=== PATIENT | male | born 1970 | race Caucasian/White ===

== ENCOUNTER 2018-07-24 10:36 | Emergency (ER) | payer OTHER ==
--- NOTE | 2018-07-24 10:46 | EDPHY ---
H & P Stated Complaint: N/V, CP, chills, body aches, coughing nasal congestion since last night Time Seen by Provider: 07/24/18 10:46 HPI/ROS: CHIEF COMPLAINT: [ ] HISTORY OF PRESENT ILLNESS: [Need 4: Location, Duration, Severity, Quality, Context, Timing Modifying Factors, Associated S&S] REVIEW OF SYSTEMS: A comprehensive 10 point review of systems is otherwise negative aside from elements mentioned in the history of present illness. Source: Patient - Medical/Surgical History Hx Asthma: No Hx Chronic Respiratory Disease: No Hx Diabetes: No Hx Cardiac Disease: No Hx Renal Disease: No Hx Cirrhosis: No Hx Alcoholism: No Hx HIV/AIDS: No Hx Splenectomy or Spleen Trauma: No Other PMH: hernia surgery - Social History Smoking Status: Never smoked - Physical Exam Exam: General Appearance: [Alert, no distress] Eyes: [Pupils equal and round no pallor or injection] ENT, Mouth: [Mucous membranes moist] Respiratory: [There are no retractions, lungs are clear to auscultation] Cardiovascular: [Regular rate and rhythm] Gastrointestinal: [Abdomen is soft and nontender, no masses, bowel sounds normal] Neurological: [A&O, normal motor function, normal sensory exam, normal cranial nerves] Skin: [Warm and dry, no rashes] Musculoskeletal: [Neck is supple nontender] Extremities: [symmetrical, full range of motion] Psychiatric: [Patient is oriented X 3, there is no agitation] Constitutional: Initial Vital Signs Temperature (C) 36.8 C 07/24/18 10:37 Heart Rate 118 H 07/24/18 10:37 Respiratory Rate 22 H 07/24/18 10:37 Blood Pressure 159/100 H 07/24/18 10:37 O2 Sat (%) 97 07/24/18 10:37 O2 Delivery Mode Room Air Allergies/Adverse Reactions: No Known Allergies Allergy (Unverified 07/24/18 10:36) Home Medications: Medication Instructions Recorded NK [No Known Home Meds] 07/24/18 Departure - Departure Referrals: Patient,NotPresent [Primary Care Provider] - As per Instructions
[2018-07-24] MEDS ORDERED: NS 1,000 ML IV ONE (11:08)
[2018-07-24] MEDS ORDERED: ASPIRIN 81 MG CHEWABLE TAB PO ONE (11:08)
--- NOTE | 2018-07-24 11:10 | EDPHY ---
HPI/HX/ROS/PE/MDM Narrative: CLINICAL IMPRESSION: Left anterior chest pain ASSESSMENT/PLAN: 48-year-old male with no significant past medical history presents to the emergency department with approximately 8 hr of atraumatic, nonexertional left anterior chest pain associated with shortness of breath, subjective diaphoresis and nausea. Pain is not reproducible to palpation, is nonradiating, and was improved upon receiving aspirin in the ED. Patient declined and additional analgesics and antiemetics. Vital signs were stable, no hypoxia or tachycardia. He did have recent car travel, no asymmetric leg swelling or calf pain. Negative D-dimer. EKG x2 shows normal sinus rhythm, no acute ST or T- wave changes, S1 q3 T3 or other arrhythmia. These were reviewed with Dr. Riley. Troponin was 0.02. Remainder of labs reassuring with no leukocytosis, renal insufficiency, electrolyte imbalance or metabolic disturbance. Chest x- ray with no acute cardiopulmonary abnormality. Patient has a heart score of 2 and I had a long discussion with him regarding low risk cardiac chest pain. Patient feels comfortable with discharge and Cardiology follow-up within 72 hr. Referrals were given to both the patient and placed in his chart note for outpatient cardiology follow-up. I recommended daily baby aspirin, close monitoring of symptoms at home, low threshold for return to ED sooner as outlined and discharge and person. DIFFERENTIAL DX: Differential diagnosis includes but not limited to myocardial ischemia, pulmonary embolus, chest wall pain, pleural inflammation, musculoskeletal chest wall pain, aortic aneurysm, and pulmonary infectious causes. ED PROCEDURES: See lab and imaging results below ED COURSE: 11:00 a.m.: EKG reviewed with Dr. Riley. Normal sinus rhythm, no acute ST or T-wave changes, no S1q3T3 identified. 12:00 p.m.: Troponin 0.02. Chest x-ray with no acute cardiopulmonary findings , labs unremarkable, normal D-dimer. Patient reassessed. Patient states pain is now 3/10, still feeling sweaty. Less dizziness, no nausea. Vital stable. Will repeat EKG CHIEF COMPLAINT: Chest pain, nausea, shortness of breath, diaphoresis HPI: This is a 48-year-old male who presents to the emergency department with complaints of left anterior chest tightness associated with nausea, shortness of breath and diaphoresis that awoke him from sleep at 2:30 a.m. This morning. Patient did not take anything for his symptoms, tried to rest but when symptoms persisted he came to the emergency department. He reports never having had symptoms like this before, no recent URI symptoms or cough. No reported fevers. He has no reported history of hypertension, hyperlipidemia, diabetes, smoking, alcohol use, or prior cardiopulmonary history. His father apparently had 2 MIs at age 50 and 52 and has stents placed. Patient states he rides his bike daily and has not had any exercise intolerance. He did drive back from [place] yesterday without stopping. No personal or family history of DVT or PE. No reported leg asymmetry or swelling. He normally does not struggle with panic or anxiety. No associated headache dizziness or vertigo. He did not take anything prior to arrival. PMH: None reported Pertinent Past Surgical History: None reported Family History: Father with KS at age 50 and 52 requiring stents Social History: Nonsmoker, does not drink alcohol, participate in daily exercise REVIEW OF SYSTEMS: All other systems negative Constitutional: No fever, no chills, appetite change. Eyes: No discharge, vision change ENT: No sore throat, congestion, ear pain. Cardiovascular: Positive for chest pain and shortness of breath Respiratory: Positive for shortness of breath Gastrointestinal: No abdominal pain, no vomiting, diarrhea, positive for nausea. Genitourinary: No hematuria, dysuria, flank pain, pelvic pain Musculoskeletal: No back pain, joint swelling, joint pain, myalgias. Skin: No rashes, color change. Neurological: No headache, dizziness, +weakness. PHYSICAL EXAM: General Appearance: Alert, oriented, appropriate, cooperative, NAD, well hydrated, non-toxic appearing, VSS, no hypoxia. HEENT: TMs are clear bilaterally no perforation or FB, no injection, no evidence of serous or mucopurulent otitis. Oropharynx clear is no erythema or exudates, no tonsillar hypertrophy or asymmetry. Dentition without abnormality. Eyes: PERRLA, no acute vision change, nystagmus, swelling, discharge, pain or photosensitivity. Conjunctiva pink, no pallor or injection Neck: Supple, nontender, no lymphadenopathy, no midline pain, FROM, no meningismus. Respiratory: There are no retractions, lungs are clear to auscultation. No reproducible chest pain to palpation Cardiac: Regular rate and rhythm, no murmurs or gallops. Gastrointestinal: Abdomen is soft, nontender, bowel sounds normal, no masses/ hernia, no rigidity, guarding or focal peritoneal findings. Neurological: [ Alert and oriented x 3, CN 2-12 grossly intact Skin: Warm, dry, no rashes, no nodules on palpation. Musculoskeletal: Extremities are symmetrical, full range of motion, no tenderness, deformity, swelling, or erythema, no calf pain or asymmetry Psychiatric: Patient is oriented X 3, there is no agitation. MEDICAL DECISION MAKING: Patient was seen independently. Secondary supervising physician at time of evaluation was Dr. Riley. Diagnosis: Left anterior chest pain. New, requires workup Summary: See Assessment and Plan for summary of ED visit Clinical lab tests: ordered / reviewed. Independent visualization of images, tracing, or specimens: Yes. Discussed patient with another provider: Dr. Riley Patient Progress: Stable. (Margarito Dos Santos) MDM: PHYSICIAN DOCUMENTATION: The patient was evaluated and managed by the Physician Environmental Health Specialist. My co- signature indicates that I have reviewed this chart and I agree with the findings and plan of care as documented. I am the secondary supervising physician. EKG: Complete interpretation has been separately recorded in the [facility] archive. Summary impression: Sinus rhythm, no ischemic changes EKG: Complete interpretation has been separately recorded in the [facility] archive. Summary impression: Repeat EKG, demonstrates sinus rhythm without ischemic changes (Marcelo Riley) - Data Points Imaging Results: Imaging Impressions Chest X-Ray 07/24/18 11:08 Impression: No acute findings in the chest. Laboratory Results: Laboratory Results 07/24/18 10:56 07/24/18 10:56 07/24/18 07/24/18 07/24/18 11:00 10:56 10:56 WBC RBC Hgb Hct MCV MCH MCHC RDW Plt Count MPV Neut % (Auto) Lymph % (Auto) Hemphill % (Auto) Eos % (Auto) Baso % (Auto) Nucleat RBC Rel Count Absolute Neuts (auto) Absolute Lymphs (auto) Absolute Monos (auto) Absolute Eos (auto) Absolute Basos (auto) Absolute Nucleated RBC Immature Gran % Immature Gran # D-Dimer < 0.27 ug/mLFEU ug/mLFEU (0.00-0.50) Sodium 140 mEq/L mEq/L (135-145) Potassium 4.1 mEq/L mEq/L (3.5-5.2) Chloride 108 mEq/L mEq/L (97-110) Carbon Dioxide 18 mEq/l L mEq/l (22-31) Anion Gap 14 mEq/L mEq/L (6-14) BUN 18 mg/dL mg/dL (7-23) Creatinine 1.1 mg/dL mg/dL (0.7-1.3) Estimated GFR > 60 Glucose 133 mg/dL H mg/dL (70-100) Calcium 10.3 mg/dL mg/dL (8.5-10.4) POC Troponin I 0.02 ng/mL ng/mL (0.00-0.08) 07/24/18 10:56 WBC 10.97 10^3/uL H 10^3/uL (3.80-9.50) RBC 5.18 10^6/uL 10^6/uL (4.40-6.38) Hgb 17.1 g/dL g/dL (13.7-17.5) Hct 48.3 % % (40.0-51.0) MCV 93.2 fL fL (81.5-99.8) MCH 33.0 pg pg (27.9-34.1) MCHC 35.4 g/dL g/dL (32.4-36.7) RDW 12.5 % % (11.5-15.2) Plt Count 284 10^3/uL 10^3/uL (150-400) MPV 9.6 fL fL (8.7-11.7) Neut % (Auto) 80.1 % H % (39.3-74.2) Lymph % (Auto) 13.2 % L % (15.0-45.0) Hemphill % (Auto) 6.0 % % (4.5-13.0) Eos % (Auto) 0.1 % L % (0.6-7.6) Baso % (Auto) 0.3 % % (0.3-1.7) Nucleat RBC Rel Count 0.0 % % (0.0-0.2) Absolute Neuts (auto) 8.79 10^3/uL H 10^3/uL (1.70-6.50) Absolute Lymphs (auto) 1.45 10^3/uL 10^3/uL (1.00-3.00) Absolute Monos (auto) 0.66 10^3/uL 10^3/uL (0.30-0.80) Absolute Eos (auto) 0.01 10^3/uL L 10^3/uL (0.03-0.40) Absolute Basos (auto) 0.03 10^3/uL 10^3/uL (0.02-0.10) Absolute Nucleated RBC 0.00 10^3/uL 10^3/uL (0-0.01) Immature Gran % 0.3 % % (0.0-1.1) Immature Gran # 0.03 10^3/uL 10^3/uL (0.00-0.10) D-Dimer Sodium Potassium Chloride Carbon Dioxide Anion Gap BUN Creatinine Estimated GFR Glucose Calcium POC Troponin I Medications Given: Discontinued Medications Aspirin (Aspirin) 324 mg PO EDNOW ONE Stop: 07/24/18 11:09 Last Admin: 07/24/18 11:15 Dose: 324 mg Sodium Chloride (Ns) 1,000 mls @ 0 mls/hr IV EDNOW ONE; Wide Open PRN Reason: Protocol Stop: 07/24/18 11:09 Last Admin: 07/24/18 11:15 Dose: 1,000 mls Point of Care Test Results: Chemistry 07/24/18 11:00 POC Troponin I 0.02 ng/mL ng/mL (0.00-0.08) General Time Seen by Provider: 07/24/18 10:46 Initial Vital Signs: Initial Vital Signs Temperature (C) 36.8 C 07/24/18 10:37 Heart Rate 118 H 07/24/18 10:37 Respiratory Rate 22 H 07/24/18 10:37 Blood Pressure 159/100 H 07/24/18 10:37 O2 Sat (%) 97 07/24/18 10:37 O2 Delivery Mode Room Air Allergies/Adverse Reactions: No Known Allergies Allergy (Unverified 07/24/18 10:36) Home Medications: Medication Instructions Recorded NK [No Known Home Meds] 07/24/18 Departure - Departure Disposition: Home, Routine, Self-Care Clinical Impression: Chest pain Qualifiers: Chest pain type: unspecified Qualified Code(s): R07.9 - Chest pain, unspecified Condition: Good Instructions: Chest Pain (ED) Additional Instructions: DISCHARGE INSTRUCTIONS FROM YOUR DOCTOR Thank you for visiting our emergency department today. Please keep in mind that discharge from the emergency department does not mean that there is nothing wrong - it simply means that we have not identified an emergency condition that requires further evaluation or treatment in the hospital. You should always plan to follow up with primary care for re-evaluation of your condition in the next 2-3 days. If you have been referred to a specialist, please call as soon as possible (today or tomorrow) to schedule your follow up appointment at the appropriate time. 1. Based upon the testing done in the Emergency Department today we see no evidence of a heart attack. 2. We are unable to fully exclude coronary artery disease based upon the testing available in the Emergency Department. 3. For this reason, we would like you to be seen by cardiology for consideration of additional testing within the next 3 days. 4. Please contact the architectural technologist you have been referred to schedule this appointment as soon as possible. Their offices are typically open from 8:30am- 5pm M-F. 5. Please return to the Emergency Department immediately for any recurrent chest pain, difficulty breathing or other concerns. People present with illnesses and injuries in different ways, and it is always possible that we have missed something. You may always return for re-evaluation if symptoms worsen or if they are not improving or if you develop new/different symptoms. Again, thank you for choosing our emergency department. We hope that you feel better. Referrals: Patient,NotPresent [Unknown] - As per Instructions Akshat Coley MD [Medical Doctor] - As per Instructions
[2018-07-24 11:15] LABS: PLATELET COUNT 284 10^3/uL (150-400)
[2018-07-24 13:11] VITALS: BP 153/68
--- NOTE | 2018-07-24 13:26 | CPEKG ---
Test Reason : OPEN Blood Pressure : / mmHG Vent. Rate : 077 BPM Atrial Rate : 078 BPM P-R Int : 115 ms QRS Dur : 091 ms QT Int : 390 ms P-R-T Axes : 040 071 034 degrees QTc Int : 442 ms Sinus rhythm Confirmed by Marcelo Riley ([id number]) on 07/24/2018 1:26:03 PM Referred By: Confirmed By:Marcelo Riley
--- NOTE | 2018-07-24 13:26 | CPEKG ---
Test Reason : OPEN Blood Pressure : / mmHG Vent. Rate : 056 BPM Atrial Rate : 056 BPM P-R Int : 148 ms QRS Dur : 098 ms QT Int : 452 ms P-R-T Axes : 058 055 023 degrees QTc Int : 437 ms Sinus rhythm Supraventricular bigeminy Confirmed by Marcelo Riley ([id number]) on 07/24/2018 1:26:05 PM Referred By: Confirmed By:Marcelo Riley
== END 2018-07-24 13:14 | disposition home or self-care (01) ==
DX: R07.9 Chest pain, unspecified (principal); R06.02 Shortness of breath; R11.0 Nausea; E86.9 Volume depletion, unspecified
CPT/HCPCS: 84484-PO

== ENCOUNTER → 2018-08-22 | Outpatient (CLI) | payer OTHER | LOC: FIMAGING 15:05 | PROVIDERS: ATTEND Internal Medicine Interventional Cardiology | DX: Z13.6 Encounter for screening for cardiovascular disorders (principal); R06.02 Shortness of breath; R07.9 Chest pain, unspecified; Z82.49 Family history of ischemic heart disease and other diseases of the circulatory system ==